=== PATIENT | male | born 1945 | race Caucasian/White ===

== ENCOUNTER 2018-01-25 11:10 | Outpatient (REF) | payer OTHER, SELFPAY ==
[2018-01-25 14:07] LABS: Anion Gap 7.6 mmol/L (3-11); BUN 16 mg/dL (7-18); CO2 28.4 mmol/L (21.0-32.0); CREATININE 0.96 mg/dL (0.70-1.30); Calcium 8.7 mg/dL (8.5-10.1); Chloride 105 mmol/L (98-107); Glucose 79 mg/dL (70-100); Potassium 4.6 mmol/L (3.5-5.1); Sodium 141 mmol/L (136-145)
[2018-01-26 12:01] LABS: Hepatitis C Ab w Rflx HCV PCR Negative (NEGAT)
== END 2018-01-25 11:11 ==
LOC: NCHCN 11:10
PROVIDERS: PCP Internal Medicine; Visit Provider Internal Medicine
DX: I10 Essential (primary) hypertension (principal)
CPT/HCPCS: 80048; 86803

== ENCOUNTER 2018-03-24 10:21 | Outpatient (REF) | payer OTHER, SELFPAY ==
[2018-03-24 13:19] LABS: ALT 28 U/L (12-78); AST 29 U/L (15-37); Cholesterol 182 mg/dL (50-200); HDL Cholesterol 27 mg/dL (40-60); LDL CHOLESTEROL 108 mg/dL (<100); Triglyceride 378 mg/dL (30-150)
[2018-03-25 12:45] LABS: Uric Acid 7.8 mg/dL (3.5-7.2)
== END 2018-03-24 10:41 ==
LOC: NCHCN 10:21
PROVIDERS: PCP Internal Medicine; Visit Provider Internal Medicine
DX: E78.6 Lipoprotein deficiency (principal); M10.9 Gout, unspecified
CPT/HCPCS: 80061; 83721; 84450; 84460; 84550

== ENCOUNTER 2018-07-29 09:38 | Outpatient (REF) | payer OTHER, SELFPAY ==
[2018-07-29 12:40] LABS: Cholesterol 129 mg/dL (50-200); HDL Cholesterol 31 mg/dL (40-60); LDL CHOLESTEROL 77 mg/dL (<100); Triglyceride 118 mg/dL (30-150)
[2018-07-29 13:04] LABS: Uric Acid 8.3 mg/dL (3.5-7.2)
== END 2018-07-29 09:58 ==
LOC: NCHCN 09:38
PROVIDERS: PCP Internal Medicine; Visit Provider Internal Medicine
DX: E78.6 Lipoprotein deficiency (principal); I10 Essential (primary) hypertension; M10.9 Gout, unspecified
CPT/HCPCS: 80061; 83721; 84550

== ENCOUNTER 2019-01-11 15:54 | Outpatient (REF) | payer OTHER, SELFPAY ==
[2019-01-11 22:32] LABS: Anion Gap 14.6 mmol/L (3-11); BUN 25 mg/dL (7-18); CO2 22.4 mmol/L (21.0-32.0); CREATININE 1.32 mg/dL (0.70-1.30); Calcium 9.4 mg/dL (8.5-10.1); Chloride 107 mmol/L (98-107); Estimated GFR 53.02 (mL/min/1.73m2); Glucose 112 mg/dL (70-100); Potassium 4.8 mmol/L (3.5-5.1); Sodium 144 mmol/L (136-145)
== END 2019-01-11 16:14 ==
LOC: NCHCN 15:54
PROVIDERS: PCP Internal Medicine; Visit Provider Internal Medicine
DX: I10 Essential (primary) hypertension (principal)
CPT/HCPCS: 80048

== ENCOUNTER 2019-03-16 09:17 | Outpatient (REF) | payer OTHER, SELFPAY ==
[2019-03-16 13:15] LABS: Anion Gap 8.6 mmol/L (3-11); BUN 20 mg/dL (7-18); CO2 27.4 mmol/L (21.0-32.0); CREATININE 1.19 mg/dL (0.70-1.30); Calcium 8.8 mg/dL (8.5-10.1); Chloride 105 mmol/L (98-107); Estimated GFR 59.76 (mL/min/1.73m2); Glucose 202 mg/dL (70-100); Potassium 4.5 mmol/L (3.5-5.1); Sodium 141 mmol/L (136-145)
== END 2019-03-16 09:37 ==
LOC: NCHCO 09:17
PROVIDERS: PCP Internal Medicine; Visit Provider Internal Medicine
DX: E78.6 Lipoprotein deficiency (principal); R73.01 Impaired fasting glucose
CPT/HCPCS: 80048

== ENCOUNTER 2019-10-26 15:16 | Outpatient (REF) | payer OTHER, SELFPAY ==
[2019-10-27 14:40] LABS: COVID-19 RT-PCR Result NEGATIVE (Negative)
== END 2019-10-26 15:36 ==
LOC: NCHCN 15:16
PROVIDERS: PCP Internal Medicine; Visit Provider Nurse Practitioner Family
DX: Z20.828 Contact with and (suspected) exposure to other viral communicable diseases (principal)
CPT/HCPCS: U0003

== ENCOUNTER 2019-12-21 09:44 | Outpatient (REF) | payer OTHER, SELFPAY ==
[2019-12-21 21:55] LABS: HCT 44.8 % (40.0-50.0); HGB 15.3 g/dL (13.5-17.5); Mean Corp. HGB Concentration 34.2 g/dL (32.0-36.0); Mean Corpuscular Hemoglobin 28.5 pg (27.0-33.0); Mean Corpuscular Volume 83.4 fL (80-95); Mean Platelet Volume 11.9 fL (8.0-11.0); Platelet Count 250 x1000/uL (130-400); RBC 5.37 m/cumm (4.50-6.00); RBC Distribution Width 13.3 % (11.8-14.1); White Blood Cell Count 7.26 k/cumm (4.4-10.8)
[2019-12-21 22:05] LABS: BUN 20 mg/dL (7-18); CREATININE 1.05 mg/dL (0.70-1.30); Calcium 9.2 mg/dL (8.5-10.1); Chloride 104 mmol/L (98-107); Glucose 88 mg/dL (74-106); Potassium 4.1 mmol/L (3.5-5.1); Sodium 140 mmol/L (136-145)
[2019-12-21 22:15] LABS: Hemoglobin A1C 6.3 % (3.8-5.6)
== END 2019-12-21 10:04 ==
LOC: NCHCN 09:44
PROVIDERS: PCP Internal Medicine; Visit Provider Physician Assistant
DX: R73.03 Prediabetes (principal); I10 Essential (primary) hypertension
CPT/HCPCS: 80048; 85027; 83036

== ENCOUNTER 2021-01-14 11:25 | Outpatient (REF) | payer OTHER, SELFPAY ==
[2021-01-14 15:58] LABS: Anion Gap 7.6 mmol/L (3-11); BUN 13 mg/dL (7-18); CO2 27.4 mmol/L (21.0-32.0); CREATININE 0.9 mg/dL (0.70-1.30); Calcium 9.1 mg/dL (8.5-10.1); Chloride 105 mmol/L (98-107); Glucose 150 mg/dL (74-106); Potassium 4.7 mmol/L (3.5-5.1); Sodium 140 mmol/L (136-145)
[2021-01-14 16:33] LABS: Hemoglobin A1C 6.8 % (<5.7)
== END 2021-01-14 11:26 | disposition home or self-care (01) ==
LOC: NCHCN 11:25
PROVIDERS: PCP Internal Medicine; Visit Provider Internal Medicine
DX: I10 Essential (primary) hypertension (principal); R73.03 Prediabetes
CPT/HCPCS: 80048; 83036

== ENCOUNTER 2021-04-12 09:51 | Outpatient (REF) | payer OTHER, SELFPAY ==
[2021-04-12 15:31] LABS: Calculated LDL 68 mg/dL (<100); Cholesterol 114 mg/dL (<200); Glucose 95 mg/dL (74-106); HDL Cholesterol 35 mg/dL (40-60); Triglyceride 55 mg/dL (<150)
== END 2021-04-12 09:52 | disposition home or self-care (01) ==
LOC: NCHCN 09:51
PROVIDERS: PCP Internal Medicine; Visit Provider Family Medicine
DX: E11.9 Type 2 diabetes mellitus without complications (principal); I10 Essential (primary) hypertension; E78.6 Lipoprotein deficiency
CPT/HCPCS: 80061; 82947

== ENCOUNTER 2021-10-16 16:55 | Outpatient (REF) | payer OTHER, SELFPAY ==
[2021-10-16 16:47] LABS: HCT 42.6 % (40.0-50.0); HGB 14.2 g/dL (13.5-17.5); MCH 29.3 pg (27.0-33.0); MCHC 33.3 % (32.0-36.0); MCV 88 fL (80-95); MPV 11.7 fL (8.0-11.0); Platelet Count 229 10^3/uL (130-400); RBC 4.84 10^6/uL (4.36-5.78); RDW 12.8 % (11.8-14.1); RDW-SD 40.7 fL; WBC 6.79 10^3/uL (4.4-10.8)
[2021-10-16 16:57] LABS: Anion Gap 8.9 mmol/L (3-11); BUN 26 mg/dL (7-18); CO2 25.1 mmol/L (21.0-32.0); Calcium 8.8 mg/dL (8.5-10.1); Chloride 106 mmol/L (98-107); Glucose 95 mg/dL (74-106); Potassium 4.4 mmol/L (3.5-5.1); Sodium 140 mmol/L (136-145)
== END 2021-10-16 16:56 | disposition home or self-care (01) ==
LOC: NCHCN 16:55
PROVIDERS: PCP Internal Medicine; Visit Provider Family Medicine
DX: I10 Essential (primary) hypertension (principal)
CPT/HCPCS: 80048; 85027

== ENCOUNTER 2022-10-06 14:03 | Outpatient (REF) | payer OTHER, SELFPAY ==
[2022-10-06 14:38] LABS: HCT 41.7 % (40.0-50.0); HGB 14.1 g/dL (13.5-17.5); MCH 29.2 pg (27.0-33.0); MCHC 33.8 % (32.0-36.0); MCV 86 fL (80-95); MPV 11.6 fL (8.0-11.0); Platelet Count 230 10^3/uL (130-400); RBC 4.83 10^6/uL (4.36-5.78); RDW 12.9 % (11.8-14.1); WBC 7.49 10^3/uL (4.4-10.8)
[2022-10-06 15:16] LABS: ALT 35 U/L (16-63); AST 26 U/L (15-37); Albumin 3.7 g/dL (3.4-5.0); Alkaline Phosphatase 108 U/L (46-116); Anion Gap 6.8 mmol/L (3-11); BUN 22 mg/dL (7-18); Bilirubin, Total 0.3 mg/dL (0.2-1.0); CO2 26.2 mmol/L (21.0-32.0); CREATININE 1.2 mg/dL (0.70-1.30); Calcium 9.1 mg/dL (8.5-10.1); Chloride 106 mmol/L (98-107); Estimated GFR 62.29 (mL/min/1.73m2); Glucose 114 mg/dL (74-106); Potassium 4.7 mmol/L (3.5-5.1); Sodium 139 mmol/L (136-145)
== END 2022-10-06 14:04 | disposition home or self-care (01) ==
LOC: NCHCN 14:03
PROVIDERS: PCP Internal Medicine; Visit Provider Family Medicine
DX: E11.9 Type 2 diabetes mellitus without complications (principal); I10 Essential (primary) hypertension; M10.9 Gout, unspecified
CPT/HCPCS: 80053; 85027; 84550

== ENCOUNTER 2023-01-07 11:30 | Outpatient (REF) | payer OTHER, SELFPAY ==
--- NOTE | 2023-01-07 13:45 | SKI_PTH ---
PATIENT: Armen Botello LOC: [facility] U#:[id number] AGE/SX: 77/M ROOM: RE01/07/[address]: Bart Sánchez : 1945 BED: DIS: 01/07/2023 SPEC #: [id number] RECD: 01/08/23 15:31 STATUS: LISY REQ #: [id number] MICHAEL: 01/07/23 13:[address]: Bart Sánchez DEPT: Surgical Specimen RECD BY: Lu Caban ENTERED: 01/08/23 15:32 SP TYPE: ALDA HENRY DR: Jose Ugarte Tissues: 1 - SKIN BIOPSY(SHAVE/PUNCH) Procedures: SKIN LEVEL 4 Comments: [id number]
== END 2023-01-07 11:31 | disposition home or self-care (01) ==
LOC: NCHCN 11:30
PROVIDERS: PCP Internal Medicine; Visit Provider Family Medicine
DX: C44.629 Squamous cell carcinoma of skin of left upper limb, including shoulder (principal)
CPT/HCPCS: 88305

== ENCOUNTER 2023-01-21 12:40 | Outpatient (REF) | payer OTHER, SELFPAY ==
[2023-01-21 16:07] LABS: Abs Immature Grans 0.04 10^3/uL (0.0-0.06); Absolute Basophil Count 0.04 10^3/uL (0.0-0.2); Absolute Eosinophil Count 0.58 10^3/uL (0.0-0.7); Absolute Lymphocyte Count 1.68 10^3/uL (1.2-3.4); Absolute Monocyte Count 1.83 10^3/uL (0.1-0.8); Basophils % 0.4; Eosinophils % 5.2; HCT 42.2 % (40.0-50.0); HGB 14.4 g/dL (13.5-17.5); Immature Grans % 0.4; MCH 29.2 pg (27.0-33.0); MCHC 34.1 % (32.0-36.0); MCV 86 fL (80-95); MPV 11.6 fL (8.0-11.0); Monocytes % 16.3; Neutrophils % 62.7; Platelet Count 243 10^3/uL (130-400); RBC 4.93 10^6/uL (4.36-5.78); RDW 12.7 % (11.8-14.1); WBC 11.22 10^3/uL (4.4-10.8)
[2023-01-21 16:27] LABS: ALT 27 U/L (16-63); AST 24 U/L (15-37); Albumin 3.8 g/dL (3.4-5.0); Alkaline Phosphatase 107 U/L (46-116); Anion Gap 9.7 mmol/L (3-11); BUN 20 mg/dL (7-18); Bilirubin, Total 0.8 mg/dL (0.2-1.0); CO2 26.3 mmol/L (21.0-32.0); CREATININE 1.1 mg/dL (0.70-1.30); Calcium 9.1 mg/dL (8.5-10.1); Chloride 104 mmol/L (98-107); Estimated GFR 68.71 (mL/min/1.73m2); Glucose 91 mg/dL (74-106); Sodium 140 mmol/L (136-145); TSH (W/Ref FT4) 2.31 uIU/mL (0.36-3.74); Total Protein 7.3 g/dL (6.4-8.2)
[2023-01-21 16:41] LABS: Absolute Neutrophil Count 7.03 10^3/uL (1.2-6.7)
[2023-01-21 17:21] LABS: Diff Comment Diff Reviewed
[2023-01-21 17:23] LABS: RBC Morphology Normal
[2023-01-22 11:01] LABS: Lyme Ab w Rflx to Lyme Confirm Negative (Negative)
[2023-01-23 21:34] LABS: Anaplasma phagocytophilum Negative (Negative); B. miyamotoi PCR Negative (Negative); Babesia divergens/MO-1 Negative (Negative); Babesia duncani Negative (Negative); Babesia microti Negative (Negative); Ehrlichia chaffeensis Negative (Negative); Ehrlichia ewingii/canis Negative (Negative); Ehrlichia muris eauclairensis Negative (Negative)
== END 2023-01-21 12:41 | disposition home or self-care (01) ==
LOC: NCHCN 12:40
PROVIDERS: PCP Internal Medicine; Visit Provider Family Medicine
DX: R50.9 Fever, unspecified (principal); T14.8XXA Other injury of unspecified body region, initial encounter; W57.XXXA Bitten or stung by nonvenomous insect and other nonvenomous arthropods, initial encounter
CPT/HCPCS: 80053; 87798; 84443; 85025; 86618

== ENCOUNTER 2023-05-01 11:48 | Outpatient (REF) | payer OTHER, SELFPAY ==
--- NOTE | 2023-05-01 15:25 | SKI_PTH ---
PATIENT: Armen Botello LOC: [facility] U#:[id number] AGE/SX: 77/M ROOM: RE05/01/[address]: Eulogio Mclaughlin DO : 1945 BED: DIS: 05/01/2023 SPEC #: [id number] RECD: 05/04/23 11:55 STATUS: LISY REQ #: [id number] MICHAEL: 05/01/23 15:[address]: Eulogio Mclaughlin DEPT: Surgical Specimen RECD BY: Lu Caban ENTERED: 05/04/23 11:55 SP TYPE: ALDA HENRY DR: Bart Sánchez Tissues: 1 - SKIN BIOPSY(SHAVE/PUNCH) Procedures: SKIN LEVEL 4 Comments: [id number]
== END 2023-05-01 11:49 | disposition home or self-care (01) ==
LOC: LBN 11:48
PROVIDERS: PCP Family Medicine; Visit Provider Otolaryngology Otolaryngology/Facial Plastic Surgery
DX: D49.2 Neoplasm of unspecified behavior of bone, soft tissue, and skin (principal)
CPT/HCPCS: 88305

== ENCOUNTER 2023-10-13 14:06 | Outpatient (REF) | payer OTHER, SELFPAY ==
[2023-10-13 14:46] LABS: Abs Immature Grans 0.02 10^3/uL (0.0-0.06); Absolute Basophil Count 0.06 10^3/uL (0.0-0.2); Absolute Lymphocyte Count 1.52 10^3/uL (1.2-3.4); Absolute Monocyte Count 1.08 10^3/uL (0.1-0.8); Absolute Neutrophil Count 3.91 10^3/uL (1.2-6.7); Basophils % 0.8; Eosinophils % 7.1; HCT 43.2 % (40.0-50.0); HGB 14.6 g/dL (13.5-17.5); Immature Grans % 0.3; Lymphocytes % 21.4; MCH 29.6 pg (27.0-33.0); MCHC 33.8 % (32.0-36.0); MCV 87 fL (80-95); Monocytes % 15.2; Neutrophils % 55.2; Platelet Count 240 10^3/uL (130-400); RBC 4.94 10^6/uL (4.36-5.78); RDW 12.3 % (11.8-14.1); RDW-SD 38.9 fL; WBC 7.09 10^3/uL (4.4-10.8)
[2023-10-13 15:06] LABS: ALT 41 U/L (16-63); AST 32 U/L (15-37); Albumin 4.1 g/dL (3.4-5.0); Alkaline Phosphatase 128 U/L (46-116); BUN 22 mg/dL (7-18); Bilirubin, Total 0.6 mg/dL (0.2-1.0); CREATININE 1.1 mg/dL (0.70-1.30); Calcium 9.3 mg/dL (8.5-10.1); Chloride 106 mmol/L (98-107); Estimated GFR 68.71 (mL/min/1.73m2); Glucose 114 mg/dL (74-106); Potassium 4.5 mmol/L (3.5-5.1); Sodium 138 mmol/L (136-145); Total Protein 7.3 g/dL (6.4-8.2)
[2023-10-14 09:24] LABS: PSA, Screening 1.2 ng/mL (<=6.5)
== END 2023-10-13 14:07 | disposition home or self-care (01) ==
LOC: NCHCN 14:06
PROVIDERS: PCP Family Medicine; Visit Provider Family Medicine
DX: I10 Essential (primary) hypertension (principal); N40.0 Benign prostatic hyperplasia without lower urinary tract symptoms
CPT/HCPCS: 80053; 84153; 85025

== ENCOUNTER 2024-04-13 19:46 | Outpatient (REF) | payer OTHER, SELFPAY ==
[2024-04-13 19:42] LABS: COMMENT (LAB VIEW ONLY) 69.06 mg/dL; Microalb ug/mg Crea 5.5 ug/mg Cr
== END 2024-04-13 19:47 | disposition home or self-care (01) ==
LOC: NCHCN 19:46
PROVIDERS: PCP Family Medicine; Visit Provider Family Medicine
DX: E11.9 Type 2 diabetes mellitus without complications (principal)
CPT/HCPCS: 82043; 82570

== ENCOUNTER 2024-11-17 18:44 | Outpatient (REF) | payer OTHER, SELFPAY ==
[2024-11-17 20:24] LABS: ALT 28 U/L (16-63); AST 31 U/L (15-37); Albumin 3.8 g/dL (3.4-5.0); Alkaline Phosphatase 118 U/L (46-116); Anion Gap 6.9 mmol/L (3-11); BUN 25 mg/dL (7-18); Bilirubin, Total 0.5 mg/dL (0.2-1.0); CO2 24.1 mmol/L (21.0-32.0); CREATININE 1.2 mg/dL (0.70-1.30); Calcium 8.6 mg/dL (8.5-10.1); Chloride 107 mmol/L (98-107); Estimated GFR 61.52 (mL/min/1.73m2); Glucose 107 mg/dL (74-106); LDL CHOLESTEROL 72 mg/dL (<100); Sodium 138 mmol/L (136-145); Total Protein 7.2 g/dL (6.4-8.2)
== END 2024-11-17 18:45 | disposition home or self-care (01) ==
LOC: NCHCN 18:44
PROVIDERS: PCP Family Medicine; Visit Provider Family Medicine
DX: I10 Essential (primary) hypertension (principal); E78.5 Hyperlipidemia, unspecified
CPT/HCPCS: 80053; 83721

== ENCOUNTER 2025-05-18 16:40 | Outpatient (REF) | payer OTHER, SELFPAY ==
[2025-05-18 21:15] LABS: HCT 40.8 % (40.0-50.0); HGB 13.9 g/dL (13.5-17.5); MCH 29.2 pg (27.0-33.0); MCHC 34.1 % (32.0-36.0); MCV 86 fL (80-95); MPV 12.0 fL (8.0-11.0); Platelet Count 254 10^3/uL (130-400); RBC 4.76 10^6/uL (4.36-5.78); RDW 12.6 % (11.8-14.1); RDW-SD 38.9 fL; WBC 10.44 10^3/uL (4.4-10.8)
[2025-05-18 21:37] LABS: TSH (W/Ref FT4) 2.92 uIU/mL (0.55-4.78)
[2025-05-18 21:42] LABS: ALT 37 U/L (10-49); AST 35 U/L (<34); Albumin 4.1 g/dL (3.2-5.0); Alkaline Phosphatase 118 U/L (46-116); Anion Gap 9.1 mmol/L (3-11); BUN 19 mg/dL (9-23); Bilirubin, Total 0.30 mg/dL (0.2-1.2); CO2 24.9 mmol/L (20.0-31.0); Calcium 9.5 mg/dL (8.3-10.6); Chloride 109 mmol/L (98-107); Glucose 148 mg/dL (74-106); Potassium 4.1 mmol/L (3.5-5.1); Sodium 143 mmol/L (136-145); Total Protein 6.7 g/dL (5.7-8.2)
== END 2025-05-18 16:41 | disposition home or self-care (01) ==
LOC: NCHCN 16:40
PROVIDERS: PCP Family Medicine; Visit Provider Family Medicine
DX: I48.91 Unspecified atrial fibrillation (principal)
CPT/HCPCS: 80053; 85027; 84443

== ENCOUNTER → 2025-05-30 00:20 | Outpatient (CLI) | payer OTHER, SELFPAY ==
--- NOTE | 2025-05-30 | DI.US_ITS ---
APPROVED REPORT EXAM: Comprehensive 2D, Doppler, and color-flow Echocardiogram Patient Location: Out-Patient Production Aide: Heather Deleon RT (R) (CT) [facility] Rhythm: Bradycardia Indications: Atrial fibrillation. Other Information Study Quality: Fair Conclusion Mild concentric left ventricular hypertrophy. Ejection fraction is 60 to 65%. Wall motion is normal Normal right ventricular size and function Both atria are normal in size The aortic valve is trileaflet. There is mild leaflet thickening, trace aortic regurgitation There is no additional significant valvular disease Wall motion Left Ventricle The left ventricle is normal size. The left ventricular systolic function is normal. The left ventricular ejection fraction is within the normal range. Mild concentric left ventricular hypertrophy. Discrete upper septal thickening (DUST) without evidence of LVOT obstruction. There is normal LV segmental wall motion. The left ventricular diastolic function is normal. There is no ventricular septal defect visualized. LVEF is 60-65%. Right Ventricle The right ventricle is normal size. The right ventricular systolic function is normal. There is normal right ventricular wall thickness. Atria The left atrium size is normal. The right atrium size is normal. The interatrial septum is intact with no evidence for an atrial septal defect. Aortic Valve Aortic valve is trileaflet. Aortic valve leaflets are mildly thickened. There is no aortic valvular stenosis. Trace aortic regurgitation. Mitral Valve The mitral valve is normal in structure. No evidence of mitral valve stenosis. Trace mitral regurgitation. Tricuspid Valve The tricuspid valve is normal in structure. There is no tricuspid valve stenosis. Trace tricuspid regurgitation. No apparent pulmonary hypertension. Pulmonic Valve Pulmonic valve leaflets are thickened. There is no pulmonic valvular stenosis. There is no pulmonic valvular regurgitation. Great Vessels The aortic root is normal in size. The pulmonary artery is normal. The ascending aorta is normal in size. IVC is normal in size and collapses >50% with inspiration. Pericardium There is no pericardial effusion. 2D Dimensions IVSD d PLAX 1.35 cm M: 0.6-1.2 Ao Root d 2.65 cm M: 3.1 - 3.7 LVPW d PLAX 1.01 cm M: 0.6 - 1.2 Ao Asc Diam d 3.10 cm M: 2.6 - 3.4 LVID d PLAX 4.11 cm M: 4.2 - 5.8 Prox Ao Arch 2.6 cm LVDs 2.81 cm M: 2.5 - 4.0 IVC Diam exp d SLAX 1.3 cm LV EF Teichholz 59.9 % FS 31.50 % LV EDV (Teich) 74.5 mL LV ESV (Teich) 29.9 mL M-Mode TAPSE 2.32 cm (M/F) >1.7 Auto EF LV EDV A4C LV EDV A2C LV EDV BP 100.7 mL LV ESV A4C LV ESV A2C LV ESV BP 46.1 mL LVEF(%) A4C LVEF(%) A2C LVEF(%) BP 54.2 % LV SV A4C LV SV A2C LV SV BP 54.5 ml LV CO A4C LV CO A2C LV CO BP 2.7 L/min LV Volumes - Method of Disks (Deal's) Single Plane 2D LV Volumes Biplane 2D LV Volumes LV EDV A4C 78.0 mL LV EDV BP 79.09 mL M: 62 - 150 LV ESV A4C 28.8 mL LV ESV BP 29.1 mL LVEF(%) A4C 63.1 % LVEF(%) BP 63.26 % M: 52 - 72 LV EDV A2C 74.9 mL LV EDV BP Index 41.84 mL/m2 M: 34 - 74 LV ESV A2C 28.5 mL SV BP LVEF(%) A2C 62.0 % SV Index LV Strain Long Pk Overal Avg (s) 18.07 LA Volume LA Length A4C 6.0 cm LA Length A2C 5.6 cm LA Area A4C s 23.54 cm2 LA Area A2C s 21.24 cm2 LA Vol A4C A-L 78.17 mL LA Vol A2C A-L 68.80 mL LA Vol Biplane A-L 76.2 mL LA Vol/BSA A4C A-L LA Vol/BSA A2C A-L LA Vol/BSA BP A-L 40.3 mL/m2 LA Vol A4C MOD 75.2 mL LA Vol A2C MOD 64.8 mL LA Vol BP MOD 71.8 mL LV Diastology MV E' medial 0.075 (>0.07 m/s) MV E Vmax 0.99 (0.4-1.3 m/s) MV E/E' MED 13.18 (<14) MV A Vmax 0.65 (0.4-1.3 m/s) MV E' lateral 0.105 (>0.1 m/s) E/A Ratio 1.5 MV E/E' LAT 9.47 (<14) MV E' Average 0.090 m/s MV E/E'(average) 11.02 Aortic Valve AoV Vmax 1.71 m/s LVOT Vmax 1.19 m/s AoV Peak Grad 11.7 mmHg LVOT Peak Grad 5.7 mmHg AoV Area (Vmax) 1.50 cm2 LVOT VTI 0.298 m AoV VTI 0.408 m LVOT Mean Grad 2.9 mmHg AoV Mean Diogo. 1.14 m/s LVOT SV 64.20 mL AoV Mean Grad 5.8 mmHg LVOT Diam s 1.65 cm AoV Area (VTI) 1.57 cm2 AV Regurg Peak Gr. 11.73 mmHg Velocity Ratio 0.70 Mitral Valve MV DT 171 (160-240 msec) Pulm Vein s 0.71 m/s Pulm Vein d 0.78 m/s Pulm Vein a 0.27 m/s Pulmonary Valve PV Vmax 1.16 (0.5-1.5 m/s) RVOT Vmax 0.65 m/s PV Peak Grad 5.4 mmHg RVOT Peak Gr. 1.7 mmHg PV Mean Diogo 0.80 m/s RVOT VTI 0.160 m PV Mean Grad 2.8 mmHg RVOT Mean Gr. 0.9 mmHg Tricuspid Valve TV S' 0.11 m/s TR Vmax 2.19 m/s TR Peak Grad 19.1 mmHg
== END ==
PROVIDERS: PCP Family Medicine; Visit Provider Family Medicine
DX: I48.91 Unspecified atrial fibrillation (principal); I51.7 Cardiomegaly
CPT/HCPCS: 93306